=== PATIENT | female | born 2000 | race Caucasian/White ===

== ENCOUNTER 2023-09-30 18:00 | Emergency (ER) | payer BC, SELFPAY ==
[2023-09-30 18:03] VITALS: BP 123/95
--- NOTE | 2023-09-30 19:08 | ED.GENMED ---
History of Present Illness
General
Chief Complaint: Musculo-Skeletal Complaint
Time Seen by Provider: 09/30/23 19:00
Travel History
Have you had any contact with someone who has COVID-19?: No
Do you have any symptoms of coronavirus? Fever > 100 degrees, chills, cough, shortness of breath, sore throat, loss of taste or smell, muscle aches, or headache?: No
History of Present Illness
History of Present Illness:
23-year-old female presents the emergency department for evaluation of left thumb pain. She was wrestling with her brother, not certain regarding the exact mechanism. Pain is predominately to the thenar eminence.
Review of Systems
Review of Systems
Allergies reviewed?: Yes
All Other Systems: ROS reviewed and negative except as documented in HPI and ROS
Phy Exam
Physical Exam
Physical Exam:
GEN: Well appearing, NAD, WDWN
HEENT: Oral mucosa moist, no scleral icterus
Cardiac: Regular rate
Lung: No respiratory distress, no tachypnea
MSK: No gross deformity or injuries. Tenderness to the left hand thenar eminence, no bruising or deformities. Range of motion of the left and limited in all de leon secondary to pain. No snuffbox tenderness or prominent bony tenderness
Skin: Good color, no pallor or jaundice, no rashes
Neuro: AO x3, moves all extremities freely
Psych: Calm, cooperative
Course
Orders/Labs/Results
Orders:
Orders
09/30/23 18:03
Finger(s)/Thumb 2 View Lt [CR Finger(s)/thumb Min 2 Vw Lt] Urgent
Comment:
Reason For Exam: thumb injury
Indicate Which Finger:: Thumb
Vital Signs
Initial and Last Documented VS:
Initial Vital Signs
Temp Pulse Resp BP Pulse Ox
98.4 F 82 17 123/95 96
09/30/23 18:03 09/30/23 18:03 09/30/23 18:03 09/30/23 18:03 09/30/23 18:03
Last Documented Vital Signs
Temp Pulse Resp BP Pulse Ox
98.4 F 82 17 123/95 96
09/30/23 18:03 09/30/23 18:03 09/30/23 18:03 09/30/23 18:03 09/30/23 18:03
MDM/Problems Addressed
MDM/Problems Addressed:
X-rays left thumb independently interpreted by me are negative for acute fracture. Discussed supportive care. Marcos wrap provided
*Critical Care Note
Total Time (30-74mins, 75-104mins- exclusive of procedures): Not Applicable
ED Attending Note
-
Portions of this chart may have been created with voice recognition software.� Occasional wrong word or��sound alike� substitutions may have occurred due to the inherent limitations of voice recognition software.
Discharge Plan
Departure
Patient Disposition: Home (Routine Discharge)
Date of Disposition: 09/30/23
Time of Disposition: 19:08
Patient with high blood pressure during this ER visit?: No
Discharge Problem:
Left thumb sprain
Instructions: Thumb Sprain ED
Prescriptions:
No Action
cetirizine 10 MG tablet
10 mg PO PRN (Reason: allergies)
topiramate 25 MG tablet
50 mg PO HS
montelukast 10 MG tablet
10 mg PO DAILY
magnesium oxide 500 MG capsule
500 mg PO DAILY
adapalene-benzoyl peroxide [Epiduo Forte] 45 GM gel with pump
topical DAILY
riboflavin (vitamin B2) 400 MG tablet
400 mg PO DAILY
qrmsphs-qryxtektbqxrf-imoyxddy [Excedrin Migraine] 1 TABLET tablet
500 mg PO DAILY PRN (Reason: migraine)
Interventions
Interventions:
*Risk Screen - Suicide Last Done: 09/30/23 18:35
*Neglect/Abuse Screening Last Done: 09/30/23 18:35
*ED COVID-19 Vaccine History Last Done: 09/30/23 18:03
ED-Musculoskeletal Assessment Last Done: 09/30/23 19:35
== END 2023-09-30 19:37 | disposition home or self-care (01) ==
LOC: EMR 18:00
PROVIDERS: EMERGENCY PHYSICIAN Emergency Medicine; FAMILY PHYSICIAN Family Medicine
DX: S63.602A Unspecified sprain of left thumb, initial encounter (principal); X58.XXXA Exposure to other specified factors, initial encounter; Y93.72 Activity, wrestling
CPT/HCPCS: 99283; 73140